=== PATIENT | female | born 1995 | race Two or more races ===

== ENCOUNTER → 2023-03-23 | Outpatient (REF) | payer OTHER | LOC: M PLALAB 11:26 | PROVIDERS: ATTEND Advanced Practice Midwife | DX: O09.33 Supervision of pregnancy with insufficient antenatal care, third trimester (principal) ==

== ENCOUNTER 2023-04-21 01:29 | Emergency (ER) | payer OTHER ==
[~2023-04-21] VITALS: Ht 165.1 cm; Wt 102.7 kg
[2023-04-21] MEDS ORDERED: MULTTAB20 PO (01:39)
[2023-04-21] MEDS ORDERED: ACET-683 PO (01:39)
[2023-04-21] MEDS ORDERED: PENICILLIN V POTASSIUM 500 MG TAB PO ONE (04:40)
[2023-04-21] MEDS ORDERED: NORCO, ANEXSIA 5/325MG TABLET (HYDROcodone/ACETAMINOPHEN) PO ONE (04:40)
[2023-04-21 04:49] VITALS: BP 142/74; TEMP 97.5; O2SAT 99
[2023-04-21] MEDS ORDERED: PENI500T PO (05:07)
== END 2023-04-21 05:17 | disposition home or self-care (01) ==
LOC: M ED 01:29
DX: O26.893 Other specified pregnancy related conditions, third trimester (principal); K08.89 Other specified disorders of teeth and supporting structures; K01.1 Impacted teeth; Z79.810 Long term (current) use of selective estrogen receptor modulators (SERMs); Z79.2 Long term (current) use of antibiotics; Z79.1 Long term (current) use of non-steroidal anti-inflammatories (NSAID); Z3A.39 39 weeks gestation of pregnancy

== ENCOUNTER 2023-04-22 02:22 | Inpatient (IN) | payer OTHER ==
[~2023-04-22] VITALS: Ht 165.1 cm; Wt 102.7 kg
[2023-04-22] VITALS (43 sets, daily range): BP systolic 89–188; BP diastolic 52–100; O2SAT 99–100
[~2023-04-22 02:22] MED LIST: ACET-683 PO; MULTTAB20 PO; PENI500T PO
[2023-04-22 02:55] LABS: HEMATOCRIT 35.9 % (36.0-47.0); HEMOGLOBIN 12.1 g/dl (12.0-15.5); MEAN CORPUSCULAR HEMOGLOBIN 25.5 pg (27.0-33.0); MEAN CORPUSCULAR HGB CONC 33.7 g/dl (32.0-36.5); MEAN CORPUSCULAR VOLUME 75.6 fl (80.0-96.0); PLATELET COUNT, AUTOMATED 248 10^3/uL (150-450); RED BLOOD COUNT 4.75 10^6/uL (4.00-5.40); WHITE BLOOD COUNT 7.4 10^3/uL (4.0-10.0)
[2023-04-22] MEDS ORDERED: NALOXONE INJ 0.4MG/1ML VIAL IV PRN (03:15)
[2023-04-22] MEDS ORDERED: diphenhydrAMINE 50MG/ML VIAL IV PRN (03:15)
[2023-04-22] MEDS ORDERED: EPIDURAL/PCA KEYS XX PRN (03:15)
[2023-04-22] MEDS ORDERED: ONDANSETRON 4MG 2ML VIAL IV PRN (03:15)
[2023-04-22] MEDS ORDERED: FENTANYL/ROPIVACAINE/NACL BAG 100 ML EPIDURAL SCH (03:15)
[2023-04-22] MEDS ORDERED: LR 500 ML IV PRN (03:15)
[2023-04-22] MEDS ORDERED: LR 1,000 ML IV SCH (05:00)
[2023-04-22] MEDS ORDERED: OXYTOCIN DRIP 30 UNITS in IV 1 EA IV PRN (05:00)
[2023-04-22] MEDS ORDERED: LACTATED RINGER'S 1000 ML IV STA (05:00)
[2023-04-22] MEDS ORDERED: TRANEXAMIC ACID INJection 1,000 MG in NS 100 ML IV PRN (05:00)
[2023-04-22] MEDS ORDERED: LIDOCAINE 1% MDV 20ML VIAL INFIL PRN (05:00)
[2023-04-22] MEDS ORDERED: CARBOPROST TROMETHAMINE 250 MCG/ML AMP IM PRN (05:00)
[2023-04-22] MEDS: ePHEDrine SULFATE 25 MG/5 ML(5MG/ML) SYRINGE IVP PRN ×2 (05:24→05:29)
[2023-04-22 06:06] LABS: TOTAL PROTEIN,RANDOM URINE 40.6 MG/DL (0.0-14.0)
[2023-04-22 06:11] LABS: CREATININE,RANDOM URINE 95.4 MG/DL
[2023-04-22] MEDS ORDERED: ACETAMINOPHEN TAB 650MG DOSE (2X325MG) PO PRN (07:10)
[2023-04-22] MEDS ORDERED: IBUPROFEN 600MG TAB PO PRN (07:10)
[2023-04-22] MEDS ORDERED: METHYLERGONOVINE MALEATE 0.2 MG TAB PO PRN (07:10)
[2023-04-22] MEDS ORDERED: RHOGAM 300MCG (1500IU) INJ IM SCH (07:10)
[2023-04-22] MEDS ORDERED: DIBUCAINE 1% OINTMENT 30GM TOP PRN (07:10)
[2023-04-22] MEDS: PRENATAL VITAMINS CHEWABLE TABLET PO SCH (08:31)
[2023-04-22] MEDS: IBUPROFEN 800 MG TAB PO PRN ×2 (08:38→19:59)
[2023-04-22] MEDS: PENICILLIN VK 500 MG PO SCH ×3 (08:50→20:00)
[2023-04-22] MEDS: ACETAMINOPHEN 500 MG TAB PO PRN ×2 (10:56→23:48)
[2023-04-23] MEDS: PENICILLIN VK 500 MG PO SCH ×3 (03:13→14:57)
[2023-04-23 06:00] VITALS: BP 129/73; O2SAT 100
[2023-04-23] MEDS: PRENATAL VITAMINS CHEWABLE TABLET PO SCH (08:13)
[2023-04-23] MEDS: DOCUSATE SODIUM 100MG CAPSULE PO PRN ×2 (13:59→14:02)
[2023-04-23] MEDS: IBUPROFEN 800 MG TAB PO PRN (14:56)
[2023-04-24] MEDS ORDERED: MEASLES,MUMPS,RUBELLA VACCINE INJ (MMR-II) SC.IMMUN ONE (09:00)
== END 2023-04-23 17:00 | disposition home or self-care (01) | DRG 560 ==
LOC: M LDI 02:22 → M OBS 09:35
PROVIDERS: ADMIT Advanced Practice Midwife; ATTEND Advanced Practice Midwife
PROC: 10E0XZZ Delivery of Products of Conception, External Approach (ICD-10-PCS; principal; 2023-04-22)
PROC: 10907ZC Drainage of Amniotic Fluid, Therapeutic from Products of Conception, Via Natural or Artificial Opening (ICD-10-PCS; 2023-04-22)
DX: O69.82X0 Labor and delivery complicated by other cord entanglement, without compression, not applicable or unspecified (principal); Z37.0 Single live birth; Z3A.39 39 weeks gestation of pregnancy

== ENCOUNTER → 2023-06-06 | Outpatient (REF) | payer OTHER | LOC: M PLALAB 14:54 | PROVIDERS: ATTEND Advanced Practice Midwife | DX: Z39.2 Encounter for routine postpartum follow-up (principal) ==